=== PATIENT | female | born 1995 | race Hispanic/Latino ===

== ENCOUNTER 2019-06-04 11:44 | Emergency (ER) | payer OTHER, SELFPAY | END 2019-06-04 13:00 | disposition home or self-care (01) | LOC: ERS 11:44 | DX: J06.9 Acute upper respiratory infection, unspecified (principal); Z20.828 Contact with and (suspected) exposure to other viral communicable diseases | CPT/HCPCS: 87635; 99283; U0002 ==

== ENCOUNTER 2024-09-07 13:01 | Emergency (ER) | payer SELFPAY | END 2024-09-07 13:49 | disposition left against medical advice (07) | LOC: ERS 13:01 | DX: Z53.21 Procedure and treatment not carried out due to patient leaving prior to being seen by health care provider (principal) ==